=== PATIENT | male | born 1980 | race Caucasian/White ===

== ENCOUNTER 2019-02-19 17:27 | Outpatient (CLI) | payer BC | END 2019-02-19 17:28 | disposition critical access hospital (66) | LOC: EMS 17:27 | PROVIDERS: ATTEND Surgery | DX: R55 Syncope and collapse (principal) | CPT/HCPCS: A0425; A0427 ==

== ENCOUNTER 2019-02-19 17:41 | Observation (INO) | payer BC, MEDICAID ==
--- NOTE | 2019-02-19 17:52 | ED Physician Documentation ---
History of Present Illness - Stated complaint Stated Complaint: GLF/ETOH - Additonal information Additional information: This is a 38-year-old male who presents after an episode of syncope and head trauma. He was drinking with his brother today, he states that After he was helping move a couch, he suddenly passed out. His brother states that he was standing any suddenly appeared to glaze over, and then fell forward after stumbling. He was out for only a second or so, but when he fell he did hit his head on pavement. He has some soreness in the back of his head but denies any neck pain, weakness, numbness, or tingling. He has a history of "irregular heartbeat,", but has never needed treatment and has never passed out before. No chest pain or shortness of breath, he currently is feeling "fine." Review of Systems Constitutional: denies: Fever Eyes: denies: Loss of vision Cardiac: denies: Chest pain / pressure Respiratory: denies: Cough GI: denies: Vomiting Skin: denies: Laceration (s) Musculoskeletal: denies: Neck pain Neurologic: reports: Syncope PD PAST MEDICAL HISTORY - Past Medical History Cardiovascular: Other ("Irregular heartbeat") - Past Surgical History Past Surgical History: No - Present Medications Home Medications: Ambulatory Orders Medication Instructions Recorded Confirmed No Known Home Medications 02/19/19 02/19/19 - Allergies Allergies/Adverse Reactions: Allergies Allergy/AdvReac Type Severity Reaction Status Date / Time No Known Drug Allergies Allergy Verified 02/19/19 17:48 - Living Situation Living Arrangement: reports: At home - Social History Does the pt smoke?: Yes Smoking Status: Current every day smoker Does the pt drink ETOH?: Yes Does the pt have substance abuse?: No - Immunizations Immunizations are current?: Yes PD ED PE NORMAL - Vitals Vital signs reviewed: Yes - General General: Alert and oriented X 3, No acute distress - HEENT HEENT: Other (Mild tenderness at the occiput of the skull, no hematoma or contusion.) - Neck Neck: Supple, no meningeal sign, No bony TTP, Other (C-collar in place) - Cardiac Cardiac: Other (Regular rhythm, tachycardic to 140.) - Respiratory Respiratory: Clear bilaterally - Abdomen Abdomen: Soft, Non tender, Non distended - Derm Derm: Warm and dry - Extremities Extremities: No deformity - Neuro Neuro: Alert and oriented X 3 - Psych Psych: Normal mood, Normal affect Results - Vitals Vitals: Vital Signs - 24 hr 02/19/19 02/19/19 02/19/19 17:49 18:39 18:56 Temperature 36.6 C Heart Rate 141 H 141 H 139 H Respiratory 23 25 H 16 Rate Blood Pressure 121/78 128/95 H 135/91 H O2 Saturation 95 96 96 02/19/19 02/19/19 02/19/19 19:46 19:52 20:46 Temperature Heart Rate 138 H 129 H 142 H Respiratory 16 16 18 Rate Blood Pressure 133/93 H 138/90 H 119/87 H O2 Saturation 97 96 97 02/19/19 02/19/19 02/19/19 21:01 22:27 22:30 Temperature Heart Rate 146 H 145 H 143 H Respiratory 18 21 20 Rate Blood Pressure 131/87 H 108/71 119/78 O2 Saturation 95 97 97 02/19/19 02/19/19 02/19/19 22:35 22:40 22:47 Temperature Heart Rate 132 H 143 H 131 H Respiratory 17 17 19 Rate Blood Pressure 126/76 135/86 H 131/77 H O2 Saturation 94 96 95 02/19/19 02/19/19 02/19/19 22:50 22:55 23:00 Temperature Heart Rate 132 H 139 H 135 H Respiratory 17 23 23 Rate Blood Pressure 127/83 H 131/81 H 135/74 H O2 Saturation 95 97 96 02/19/19 02/19/19 02/19/19 23:05 23:10 23:15 Temperature Heart Rate 137 H 136 H 135 H Respiratory 20 16 16 Rate Blood Pressure 121/81 H 115/81 H 125/84 H O2 Saturation 96 96 95 02/19/19 02/19/19 02/19/19 23:20 23:25 23:30 Temperature Heart Rate 136 H 135 H 135 H Respiratory 23 14 20 Rate Blood Pressure 132/110 H 126/82 H 118/79 O2 Saturation 96 97 98 02/19/19 02/20/19 02/20/19 23:45 00:00 00:15 Temperature Heart Rate 135 H 136 H 139 H Respiratory 18 19 18 Rate Blood Pressure 122/85 H 119/76 98/62 O2 Saturation 97 91 L 92 10/11/0302/20/19 02/20/19 00:35 00:40 00:48 Temperature Heart Rate 156 H 166 H 142 H Respiratory 20 23 Rate Blood Pressure 128/99 H 118/73 O2 Saturation 96 95 94 02/20/19 01:15 Temperature 37.0 C Heart Rate 139 H Respiratory 20 Rate Blood Pressure 124/75 O2 Saturation 96 Oxygen O2 Source Room air - EKG (time done) 18:04 Other comments: Other comments (Rate 138, rhythm likely supraventricular tachycardia, no obvious ST segment elevation or depression, though TP segment is difficult to discern due to tachycardia.) 18:58 Other comments: Other comments (Rhythm strip obtained during adenosine administration, after adenosine there were P waves visible that do not conduct for 2 beats, followed by recurrence of sinus rhythm, however within several seconds the sinus tachycardia returns to the previous narrow complex tachycardia) - Labs Labs: Laboratory Tests 02/19/19 02/19/19 02/19/19 18:30 18:30 18:30 WBC 8.8 RBC 4.77 Hgb 15.7 Hct 44.8 MCV 93.9 MCH 32.9 H MCHC 35.0 RDW 13.2 Plt Count 253 MPV 9.9 Neut # (Auto) 7.6 H Lymph # (Auto) 0.5 L [place] # (Auto) 0.6 Eos # (Auto) 0.1 Baso # (Auto) 0.1 Absolute Nucleated RBC 0.00 Nucleated RBC % 0.0 PT 11.8 INR 1.0 Sodium 143 Potassium 3.9 Chloride 106 Carbon Dioxide 22 Anion Gap 15.0 H BUN 12 Creatinine 1.1 Estimated GFR (MDRD) 74 L Glucose 98 Calcium 8.9 Total Bilirubin 0.4 AST 27 ALT 24 Alkaline Phosphatase 61 Troponin I High Sens Total Protein 7.6 Albumin 4.3 Globulin 3.3 Albumin/Globulin Ratio 1.3 Lipase 36 TSH Urine Opiates Screen Ur Oxycodone Screen Urine Methadone Screen Ur Propoxyphene Screen Ur Barbiturates Screen Ur Tricyclics Screen Ur Phencyclidine Scrn Ur Amphetamine Screen U Methamphetamines Scrn U Benzodiazepines Scrn Urine Cocaine Screen U Cannabinoids Screen Ethyl Alcohol 217.6 02/19/19 02/19/19 02/19/19 18:30 18:30 21:15 WBC RBC Hgb Hct MCV MCH MCHC RDW Plt Count MPV Neut # (Auto) Lymph # (Auto) [place] # (Auto) Eos # (Auto) Baso # (Auto) Absolute Nucleated RBC Nucleated RBC % PT INR Sodium Potassium Chloride Carbon Dioxide Anion Gap BUN Creatinine Estimated GFR (MDRD) Glucose Calcium Total Bilirubin AST ALT Alkaline Phosphatase Troponin I High Sens 12.8 Total Protein Albumin Globulin Albumin/Globulin Ratio Lipase TSH 1.27 Urine Opiates Screen NEGATIVE Ur Oxycodone Screen NEGATIVE Urine Methadone Screen NEGATIVE Ur Propoxyphene Screen NEGATIVE Ur Barbiturates Screen NEGATIVE Ur Tricyclics Screen NEGATIVE Ur Phencyclidine Scrn NEGATIVE Ur Amphetamine Screen NEGATIVE U Methamphetamines Scrn NEGATIVE U Benzodiazepines Scrn NEGATIVE Urine Cocaine Screen NEGATIVE U Cannabinoids Screen NEGATIVE Ethyl Alcohol 02/20/19 00:20 WBC RBC Hgb Hct MCV MCH MCHC RDW Plt Count MPV Neut # (Auto) Lymph # (Auto) [place] # (Auto) Eos # (Auto) Baso # (Auto) Absolute Nucleated RBC Nucleated RBC % PT INR Sodium Potassium Chloride Carbon Dioxide Anion Gap BUN Creatinine Estimated GFR (MDRD) Glucose Calcium Total Bilirubin AST ALT Alkaline Phosphatase Troponin I High Sens 16.5 Total Protein Albumin Globulin Albumin/Globulin Ratio Lipase TSH Urine Opiates Screen Ur Oxycodone Screen Urine Methadone Screen Ur Propoxyphene Screen Ur Barbiturates Screen Ur Tricyclics Screen Ur Phencyclidine Scrn Ur Amphetamine Screen U Methamphetamines Scrn U Benzodiazepines Scrn Urine Cocaine Screen U Cannabinoids Screen Ethyl Alcohol PD MEDICAL DECISION MAKING - ED course Complexity details: considered differential (Dysrhythmia, ACS, SVT, a flutter, alcohol intoxication, intracranial hemorrhage, fracture, contusion, concussion.) ED course: Patient arrives in C-spine precautions, is awake, alert, with a non-focal neurologic exam. He has some mild posterior head tenderness, no other signs of trauma. CT scan of the head and C-spine are negative, c-collar cleared. Labs reveal elevated alcohol level, UDS negative, labs otherwise unremarkable. When he arrived he was tachycardic to 140, with a narrow complex rhythm on the monitor. EKG reveals what appears to be a Supraventricular tachycardia. His blood pressure is normal and he is asymptomatic with no chest pain or shortness of breath. Vagal maneuvers were ineffective at breaking the dysrhythmia. Patient was given 6 mg of adenosine with no change in his rhythm, followed by 12 mg of adenosine rapid IV push which caused him to convert to a sinus tachycardia for 10 beats, then he returned to his supraventricular tachycardia. A second 12 mg dose of adenosine caused him to convert to sinus rhythm but only for around 10 beats. Patient was given diltiazem 10 mg, followed by 15 mg IV push, and Diltiazem infusion up to 12.5 mg/h. This is not effective in controlling the heart rate. Second troponin remains within normal limits. I spoke to [facility] Cardiology, who recommended a beta caitlin and observation. They thought to be appropriate for admission at our hospital or transfer to [facility]. I spoke with our hospitalist Dr. Caceres who evaluated the patient and admitted the patient for further treatment and observation. His blood pressure remains normal and he is asymptomatic at this time. Departure - Departure Disposition: ED Place in Observation Clinical Impression: Tachycardia Syncope Qualifiers: Syncope type: unspecified Qualified Code(s): R55 - Syncope and collapse Condition: Stable Discharge Date/Time: 02/20/19 01:30
[2019-02-19] MEDS ORDERED: SODIUM CHLORIDE 0.9% 1,000 ML IV ONE (18:17)
[2019-02-19 18:38] LABS: BASOPHILS # (AUTO) 0.1 10^3/uL (0.0-0.1); BASOPHILS % (AUTO) 0.7 %; EOSINOPHILS # (AUTO) 0.1 10^3/uL (0.0-0.7); EOSINOPHILS % (AUTO) 0.6 %; HGB - HEMOGLOBIN 15.7 g/dL (14.0-18.0); LYMPHOCYTES # (AUTO) 0.5 10^3/uL (1.5-3.5); LYMPHOCYTES % (AUTO) 5.6 %; MEAN CORPUSCULAR HEMOGLOBIN 32.9 pg (27.0-31.0); MEAN CORPUSCULAR VOLUME 93.9 fL (80.0-94.0); MEAN PLATELET VOLUME 9.9 fL (7.4-11.4); MONOCYTES # (AUTO) 0.6 10^3/uL (0.0-1.0); MONOCYTES % (AUTO) 6.5 %; NEUTROPHILS # (AUTO) 7.6 10^3/uL (1.5-6.6); NEUTROPHILS % (AUTO) 86.1 %; PLT - PLATELET COUNT 253 10^3/uL (130-450); RED BLOOD COUNT 4.77 10^6/uL (4.70-6.10); RED CELL DISTRIBUTION WIDTH 13.2 % (12.0-15.0); WHITE BLOOD COUNT 8.8 x10^3/uL (4.8-10.8)
[2019-02-19] MEDS ORDERED: ADENOSINE 6 MG/2 ML VIAL IVP STA ×3 (18:38→23:20)
[2019-02-19 18:49] LABS: ALBUMIN 4.3 g/dL (3.2-5.5); ALBUMIN/GLOBULIN RATIO 1.3 (1.0-2.2); BILIRUBIN,TOTAL 0.4 mg/dL (0.2-1.0); CALCIUM 8.9 mg/dL (8.5-10.3); CREATININE 1.1 mg/dL (0.6-1.2); TOTAL PROTEIN 7.6 g/dL (6.7-8.2)
[2019-02-19 18:51] LABS: PT - PROTHROMBIN TIME 11.8 secs (9.9-12.6)
[2019-02-19] MEDS ORDERED: ADENOSINE 6 MG/2 ML VIAL IVP ONE (19:04)
[2019-02-19] MEDS ORDERED: diltiaZEM INJ 5 MG/ML VIAL IVP STA ×2 (19:32→22:11)
--- NOTE | 2019-02-19 20:03 | CT Report ---
Reason: Syncope and impact to head Procedure Date: 02/19/2019 Accession Number: [id number] / [id number] Procedure: CT - HEAD WO CPT Code: FULL RESULT: EXAM: CT HEAD EXAM DATE: 02/19/2019 07:37 PM. CLINICAL HISTORY: Syncope and impact to head. COMPARISON: None. TECHNIQUE: Multiaxial CT images were obtained from the foramen magnum to the vertex. Reformats: Sagittal and coronal. IV contrast: None. In accordance with CT protocol optimization, one or more of the following dose reduction techniques were utilized for this exam: automated exposure control, adjustment of mA and/or KV based on patient size, or use of iterative reconstructive technique. FINDINGS: Parenchyma: No intraparenchymal hemorrhage. No evidence of mass, midline shift, or CT findings of infarction. Lemon-white differentiation is distinct. Extraaxial Spaces: Normal for age. No subdural or epidural collections identified. Ventricles: Normal in size and position. Sinuses and Orbits: Imaged paranasal sinuses, orbits, and mastoids show no significant abnormality. Bones: No evidence of fracture or calvarial defect. Other: None. IMPRESSION: No acute intracranial CT abnormality. RADIA
--- NOTE | 2019-02-19 20:08 | CT Report ---
Reason: Syncope and impact to head Procedure Date: 02/19/2019 Accession Number: [id number] / [id number] Procedure: CT - CERVICAL SPINE WO CPT Code: FULL RESULT: EXAM: CT CERVICAL SPINE WITHOUT CONTRAST DATE: 02/19/2019 07:36 PM. HISTORY: Syncope and impact to head. COMPARISONS: None. TECHNIQUE: Thin-section axial images were acquired of the cervical spine without contrast. Post-processing: Coronal and sagittal reformats. Other: None. In accordance with CT protocol optimization, one or more of the following dose reduction techniques were utilized for this exam: automated exposure control, adjustment of mA and/or KV based on patient size, or use of iterative reconstructive technique. FINDINGS: Alignment: No scoliosis or spondylolisthesis. Bones: No acute fracture. Interspace Levels/Facets: Mild disk degeneration at C5-C6. Moderate right foraminal stenosis at this level. Other: The paravertebral and prevertebral soft tissues are unremarkable. The lung apices are clear. IMPRESSION: No acute fracture. RADIA
[2019-02-19 21:24] LABS: MUDS CUTOFF CONCENTRATIONS CUTOFF CONC BELOW:
[2019-02-19 21:36] LABS: AMPHETAMINE SCREEN,URINE NEGATIVE (NEGATIVE); BENZODIAZEPINES SCREEN, URINE NEGATIVE (NEGATIVE); COCAINE SCREEN URINE NEGATIVE (NEGATIVE); METHADONE SCREEN, URINE NEGATIVE (NEGATIVE); METHAMPHETAMINES SCREEN, URINE NEGATIVE (NEGATIVE); OPIATE SCREEN, URINE NEGATIVE (NEGATIVE); OXYCODONE SCREEN, URINE NEGATIVE (NEGATIVE); PROPOXYPHENE SCREEN, URINE NEGATIVE (NEGATIVE); TRICYCLIC ANTIDEPRESSANT,URINE NEGATIVE (NEGATIVE)
[2019-02-19] MEDS ORDERED: diltiaZEM INJ 125 MG in DEXTROSE 5% 100 ML IV STA (22:09)
[2019-02-19] MEDS ORDERED: diltiaZEM INJ 5 MG/ML VIAL ONE (22:29)
[2019-02-19] MEDS ORDERED: LORazepam 2 MG/ML VIAL IVP STA (23:24)
[2019-02-20] MEDS ORDERED: ONDANSETRON 4 MG/2 ML VIAL IVP PRN (01:17)
[2019-02-20] MEDS ORDERED: SODIUM CHLORIDE FLUSH 0.9% 10 ML SYRINGE IVP PRN (01:17)
[2019-02-20] MEDS ORDERED: METOPROLOL 5 MG/5 ML VIAL IVP STA ×2 (01:18→06:43)
--- NOTE | 2019-02-20 01:31 | HISTORY & PHYSICAL EXAMINATION ---
Chief Complaint - Chief Complaint Chief Complaint: Syncope History of Present Illness - Admitted From Admitted From:: Home - History Obtained From Records Reviewed: Yes History obtained from: Patient, ER Physician, EMR - History of Present Illness HPI Comment/Other: This is a 38 year old male with a past medical history significant for an irregular heart beat and alcohol abuse who presents to the ER after having a syncopal episode. He reports that he helped his brother move today after he drank some alcohol in the morning. He normally drinks 50oz of malt liquor and 50oz of beer daily but that he drink a little more today. While at his brother's apartment he passed out and his brother saw him on the ground. He went to wake him up and the patient woke up after a few seconds. He did not feel confused after the episode. He denies having chest pain, palpitations, dizziness or lightheadedness prior the episode. He did hit his head on the ground but denies weakness, numbness, headache. After they loaded the vehicle with furniture, his brother heard another "thump" and found the patient sitting in the car passed out again. Once again he woke up after a few seconds and was not confused. He reports being told he had an irregular heart beat in his early 20's but was never received treatment. He currently does not take medications and has not seen a doctor in a few years. He continues to deny chest pain, dyspnea, palpitations. He does report some dizziness when standing up quickly. In the ER, he was found to be in SVT with heart rate in the 140's. The patient was asymptomatic. He received 6mg of Adenosine without a change in his rhythm. He then received 12mg which broke the rhythm for about 10 seconds which revealed a sinus tachycardia but he went back into SVT shortly after. He received a second dose of 12mg with similar results. He was then given Diltiazem 10mg IV followed by 15mg IV with no change in his rate. The ER Physician contacted Cardiology at [facility] who recommended initiating a beta caitlin and observation. Labs were unremarkable except for an alcohol level >200. TSH was normal. Imaging of his head and c-spine were also unremarkable. History - Past Medical History Cardiovascular: reports: None, Other ("Irregular heartbeat") Respiratory: reports: None Endocrine/Autoimmune: reports: None GI: reports: None - Family & Social History Family History Comment/Other: His father had hypertension. His grandfather has heart disease. He denies a history of arrythmias in the family. 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. He smokes a pack of cigarettes a day for the past 20 years. He drinks 50oz of malt liquor and 50oz of beer daily for the last few years. Denies going through withdrawal in the past. Denies current illicit drug use. He did try ecstacy back in 1999. - Substance History Use: Uses substance without health or social issues: Tobacco Abuse: Recurrent use of substance despite neg consequences: Alcohol Abuse Issues: Intoxication Tobacco Details: Cigarettes, E-Cigarettes - POLST Patient has POLST: No Meds/Allgy - Home Medications Home Medications: Ambulatory Orders Medication Instructions Recorded Confirmed No Known Home Medications 02/19/19 02/19/19 - Allergies Allergies/Adverse Reactions: Allergies Allergy/AdvReac Type Severity Reaction Status Date / Time No Known Drug Allergies Allergy Verified 02/19/19 17:48 Review of Systems - Constitutional Constitutional: denies: Fatigue, Fever, Chills, Weakness - Cardiovascular Cariovascular: reports: Syncope. denies: Irregular heart rate, Palpitations, Chest pain, Edema, Lightheadedness, Exertional dyspnea, Decr. exercise tolerance - Respiratory Respiratory: denies: Cough, SOB at rest, SOB with exertion - Gastrointestinal Gastrointestinal: denies: Abdominal pain, Nausea, Vomiting - Musculoskeletal Musculoskeletal: denies: Muscle weakness - Integumentary Integumentary: denies: Rash - Neurological Neurological: reports: Dizziness. denies: General weakness, Focal weakness, Headache, Numbness, Memory problems - All Other Systems All Other Systems: reports: Reviewed and negative Prior Level of Functionality: Independent with ADL's. Exam - Vital Signs Reviewed Vital Signs: Yes Vital Signs: Vital Signs x48h Temp Pulse Resp BP Pulse Ox 02/20/19 01:15 37.0 C 139 H 20 124/75 96 02/20/19 00:48 142 H 23 118/73 94 02/20/19 00:40 166 H 95 02/20/19 00:35 156 H 20 128/99 H 96 02/20/19 00:15 139 H 18 98/62 92 02/20/19 00:00 136 H 19 119/76 91 L 02/19/19 23:45 135 H 18 122/85 H 97 02/19/19 23:30 135 H 20 118/79 98 02/19/19 23:25 135 H 14 126/82 H 97 02/19/19 23:20 136 H 23 132/110 H 96 02/19/19 23:15 135 H 16 125/84 H 95 02/19/19 23:10 136 H 16 115/81 H 96 02/19/19 23:05 137 H 20 121/81 H 96 02/19/19 23:00 135 H 23 135/74 H 96 02/19/19 22:55 139 H 23 131/81 H 97 02/19/19 22:50 132 H 17 127/83 H 95 02/19/19 22:47 131 H 19 131/77 H 95 02/19/19 22:40 143 H 17 135/86 H 96 02/19/19 22:35 132 H 17 126/76 94 02/19/19 22:30 143 H 20 119/78 97 02/19/19 22:27 145 H 21 108/71 97 02/19/19 21:01 146 H 18 131/87 H 95 02/19/19 20:46 142 H 18 119/87 H 97 02/19/19 19:52 129 H 16 138/90 H 96 02/19/19 19:46 138 H 16 133/93 H 97 02/19/19 18:56 139 H 16 135/91 H 96 02/19/19 18:39 141 H 25 H 128/95 H 96 02/19/19 17:49 36.6 C 141 H 23 121/78 95 - Physical Exam General Appearance: positive: No acute distress, Alert Eyes Bilateral: positive: Normal inspection, Other (Conjuctivae slightly injected) ENT: positive: ENT inspection nml Neck: positive: Nml inspection Respiratory: positive: No respiratory distress. negative: Wheezes, Rales, Rhonchi Cardiovascular: positive: Tachycardia, Other (Regular rhythm). negative: Irregularly irregular, Bradycardia, Systolic murmur, Diastolic murmur Abdomen: positive: Non-tender, No distention. negative: Tenderness, Guarding, Rebound Skin: positive: Color nml, No rash, Warm, Dry Extremities: positive: Non-tender, Full ROM, Nml appearance, No pedal edema Neurologic/Psychiatric: positive: Oriented x3, Motor nml, Sensation nml. negative: Disoriented to person, Disoriented to place, Disoriented to time, Weakness Conclusion/Plan - Problem List (1) Syncope Conclusion/Plan: This may be secondary to his arrhythmia or his alcohol intoxication. Orthostasis will need to be ruled out as he may be dehydrated from his significant alcohol use and the physical exertion of movement. EKG consistent with SVT. No ischemic signs. Troponin negative. Imaging of head and c-spine is unremarkable. - Will check orthostatics - IV hydration - Obtain Echo once rate controlled - Trend troponin - Monitor on telemetry Qualifiers: Syncope type: unspecified Qualified Code(s): R55 - Syncope and collapse (2) SVT (supraventricular tachycardia) Conclusion/Plan: He is asymptomatic at this time but his history of syncope is concerning. Unable to break with Adenosine x3 and Diltiazem. Rates persistently around 140. Suspect this may be underlying atrial flutter. TSH is normal. - Lopressor 5mg IV now - Start Metoprolol 50mg BID PO - Obtain Echo - Monitor on telemetry (3) Alcohol intoxication Conclusion/Plan: Presented with alcohol level >200. Drinks 100oz of alcohol daily between malt liquor and beer. Denies history of withdrawal in the past. - Thiamine and Folic acid PO - [facility] protocol - Monitor for withdrawal - Lab Results Lab results reviewed: Yes Fish Bones: 02/19/19 18:30 02/19/19 18:30 - Diagnostic Imaging Results Diagnostic Imaging Results: positive: Final report reviewed - EKG Results EKG Interpreted Independently: Yes EKG Findings: SVT without ischemic changes. Rate in the high 130's. QTc prolonged at 479. Core Measures - Anticipated LOS I expect patient to be DC'd or transferred within 96 hours.: Yes - Issues Hospital Issues and Management Plan: Syncope and SVT requiring further rate control and workup. - DVT/VTE - Prophylaxis VTE/DVT Device ordered at admit?: Yes VTE/DVT Prophylaxis med ordered at admit?: Yes
[2019-02-20] MEDS ORDERED: METOPROLOL 5 MG/5 ML VIAL IVP ONE (02:03)
[2019-02-20] MEDS ORDERED: LACTATED RINGERS 1,000 ML IV SCH (05:00)
[2019-02-20 05:20] LABS: CALCIUM 8.8 mg/dL (8.5-10.3); MAGNESIUM 2.2 mg/dL (1.7-2.8)
[2019-02-20] MEDS: METOPROLOL TARTRATE 50 MG TABLET PO SCH ×2 (10:10→20:01)
[2019-02-20] MEDS: THIAMINE 100 MG TABLET PO SCH (10:10)
[2019-02-20] MEDS: ENOXAPARIN 40 MG/0.4 ML SYRINGE SUBQ SCH (10:10)
[2019-02-20] MEDS: SODIUM CHLORIDE FLUSH 0.9% 10 ML SYRINGE IVP SCH ×2 (10:11→17:01)
[2019-02-20] MEDS: FOLIC ACID 1 MG TABLET PO SCH (10:11)
--- NOTE | 2019-02-20 11:45 | PROVIDER PROGRESS NOTE ---
Subjective - Prog Note Date Prog Note Date: 02/20/19 Prog Note Time: 11:37 - Subjective Pt reports feeling: Improved Subjective: Mr. Penny is resting in bed this morning. He feel is feeling a bit groggy. He has gotten up a couple of times to use the restroom and has not felt lightheaded, dizzy or any palpitations. The soreness that he had to his back and the back of his head is now gone. He is hoping to return to work tomorrow. 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 No h/a, hallucinations, anxiety, nausea, vomiting, dizziness or chest pain. Current Medications - Current Medications Current Medications: Active Medications Enoxaparin Sodium (Lovenox) 40 mg SUBQ DAILY [facility] Last Admin: 02/20/19 10:10 Dose: 40 mg Folic Acid () 1 mg PO DAILY [facility] Last Admin: 02/20/19 10:11 Dose: 1 mg Metoprolol Tartrate (Lopressor) 50 mg PO BID [facility] Last Admin: 02/20/19 10:10 Dose: 50 mg Ondansetron HCl (Zofran Inj) 4 mg IVP Q6HR PRN PRN Reason: Nausea / Vomiting Multivit/Folic Acid/Iron (Trinatal Rx 1) 1 tab PO DAILYWM [facility] Sodium Chloride (Normal Saline Flush 0.9%) 10 ml IVP PRN PRN PRN Reason: NEEDED PER PROVIDER ORDERS Sodium Chloride (Normal Saline Flush 0.9%) 10 ml IVP 0100,0900,1700 [facility] Last Admin: 02/20/19 10:11 Dose: 10 ml Thiamine HCl (Vitamin B-1) 100 mg PO DAILY [facility] Last Admin: 02/20/19 10:10 Dose: 100 mg No Known Home Medications 02/19/19 Objective - Vital Signs/Intake & Output Vital Signs: Vital Signs x48h Pulse Pulse Pulse Pulse BP BP BP 02/20/19 09:10 132 H 139 H 128 H 147/107 H 02/20/19 07:15 127 H 137/96 H 02/20/19 07:10 128 H 132/94 H 02/20/19 07:09 123/87 H 02/20/19 06:04 139 H 151 H 132 H 137/102 H BP BP 02/20/19 09:10 129/90 H 141/91 H 02/20/19 07:15 02/20/19 07:10 02/20/19 07:09 02/20/19 06:04 140/91 H 141/93 H Intake & Output: Intake & Output 02/17/19 02/18/19 02/19/19 02/20/19 23:59 23:59 23:59 23:59 Intake Total 8994.515 9209 Output Total 400 525 Balance 607.250 682 - Objective General Appearance: positive: No acute distress. negative: Anxious, Lethargic, Other (No diaphoresis) Eyes Bilateral: positive: Normal inspection, PERRL, Conjunctivae nml, No scleral icterus ENT: positive: ENT inspection nml, No signs of dehydration Neck: positive: Nml inspection. negative: Swelling/bruising Respiratory: positive: No respiratory distress, Breath sounds nml Cardiovascular: positive: Tachycardia. negative: No murmur, No gallop, Decreased pulse(s) Peripheral Pulses: 2+ Radial (R), 2+ Radial (L), 2+ Dorsalis pedis (R), 2+ Dorsalis pedis (L) Abdomen: positive: Non-tender, Nml bowel sounds Back: positive: Nml inspection Skin: positive: Color nml, Warm, Dry, Other (Scratches to RUE post fall). negative: Diaphoresis Extremities: positive: Non-tender, Full ROM. negative: Other (No tremors) Neurologic/Psychiatric: positive: Oriented x3, Motor nml, Sensation nml, Mood/affect nml. negative: Depressed mood/affect - Lab Results Fish Bones: 02/19/19 18:30 02/20/19 04:55 Other Labs: Lab Results x24hrs 02/20/19 02/20/19 02/20/19 Range/Units 04:55 04:55 00:20 WBC (4.8-10.8) x10^3/uL RBC (4.70-6.10) 10^6/uL Hgb (14.0-18.0) g/dL Hct (42.0-52.0) % MCV (80.0-94.0) fL MCH (27.0-31.0) pg MCHC (32.0-36.0) g/dL RDW (12.0-15.0) % Plt Count (130-450) 10^3/uL MPV (7.4-11.4) fL Neut # (Auto) (1.5-6.6) 10^3/uL Lymph # (Auto) (1.5-3.5) 10^3/uL Edgar # (Auto) (0.0-1.0) 10^3/uL Eos # (Auto) (0.0-0.7) 10^3/uL Baso # (Auto) (0.0-0.1) 10^3/uL Absolute Nucleated RBC x10^3/uL Nucleated RBC % /100WBC PT (9.9-12.6) secs INR (0.8-1.2) Sodium 141 (135-145) mmol/L Potassium 3.6 (3.5-5.0) mmol/L Chloride 106 (101-111) mmol/L Carbon Dioxide 27 (21-32) mmol/L Anion Gap 8.0 (6-13) BUN 12 (6-20) mg/dL Creatinine 1.0 (0.6-1.2) mg/dL Estimated GFR (MDRD) 83 L (>89) Glucose 108 H (70-100) mg/dL Calcium 8.8 (8.5-10.3) mg/dL Magnesium 2.2 (1.7-2.8) mg/dL Total Bilirubin (0.2-1.0) mg/dL AST (10-42) IU/L ALT (10-60) IU/L Alkaline Phosphatase (42-121) IU/L Troponin I High Sens 9.4 16.5 (2.3-19.7) pg/mL Total Protein (6.7-8.2) g/dL Albumin (3.2-5.5) g/dL Globulin (2.1-4.2) g/dL Albumin/Globulin Ratio (1.0-2.2) Lipase (22-51) U/L TSH (0.34-5.60) uIU/mL Urine Opiates Screen (NEGATIVE) Ur Oxycodone Screen (NEGATIVE) Urine Methadone Screen (NEGATIVE) Ur Propoxyphene Screen (NEGATIVE) Ur Barbiturates Screen (NEGATIVE) Ur Tricyclics Screen (NEGATIVE) Ur Phencyclidine Scrn (NEGATIVE) Ur Amphetamine Screen (NEGATIVE) U Methamphetamines Scrn (NEGATIVE) U Benzodiazepines Scrn (NEGATIVE) Urine Cocaine Screen (NEGATIVE) U Cannabinoids Screen (NEGATIVE) Ethyl Alcohol mg/dL 02/19/19 02/19/19 02/19/19 Range/Units 21:15 18:30 18:30 WBC (4.8-10.8) x10^3/uL RBC (4.70-6.10) 10^6/uL Hgb (14.0-18.0) g/dL Hct (42.0-52.0) % MCV (80.0-94.0) fL MCH (27.0-31.0) pg MCHC (32.0-36.0) g/dL RDW (12.0-15.0) % Plt Count (130-450) 10^3/uL MPV (7.4-11.4) fL Neut # (Auto) (1.5-6.6) 10^3/uL Lymph # (Auto) (1.5-3.5) 10^3/uL Edgar # (Auto) (0.0-1.0) 10^3/uL Eos # (Auto) (0.0-0.7) 10^3/uL Baso # (Auto) (0.0-0.1) 10^3/uL Absolute Nucleated RBC x10^3/uL Nucleated RBC % /100WBC PT (9.9-12.6) secs INR (0.8-1.2) Sodium (135-145) mmol/L Potassium (3.5-5.0) mmol/L Chloride (101-111) mmol/L Carbon Dioxide (21-32) mmol/L Anion Gap (6-13) BUN (6-20) mg/dL Creatinine (0.6-1.2) mg/dL Estimated GFR (MDRD) (>89) Glucose (70-100) mg/dL Calcium (8.5-10.3) mg/dL Magnesium (1.7-2.8) mg/dL Total Bilirubin (0.2-1.0) mg/dL AST (10-42) IU/L ALT (10-60) IU/L Alkaline Phosphatase (42-121) IU/L Troponin I High Sens 12.8 (2.3-19.7) pg/mL Total Protein (6.7-8.2) g/dL Albumin (3.2-5.5) g/dL Globulin (2.1-4.2) g/dL Albumin/Globulin Ratio (1.0-2.2) Lipase (22-51) U/L TSH 1.27 (0.34-5.60) uIU/mL Urine Opiates Screen NEGATIVE (NEGATIVE) Ur Oxycodone Screen NEGATIVE (NEGATIVE) Urine Methadone Screen NEGATIVE (NEGATIVE) Ur Propoxyphene Screen NEGATIVE (NEGATIVE) Ur Barbiturates Screen NEGATIVE (NEGATIVE) Ur Tricyclics Screen NEGATIVE (NEGATIVE) Ur Phencyclidine Scrn NEGATIVE (NEGATIVE) Ur Amphetamine Screen NEGATIVE (NEGATIVE) U Methamphetamines Scrn NEGATIVE (NEGATIVE) U Benzodiazepines Scrn NEGATIVE (NEGATIVE) Urine Cocaine Screen NEGATIVE (NEGATIVE) U Cannabinoids Screen NEGATIVE (NEGATIVE) Ethyl Alcohol mg/dL 02/19/19 02/19/19 02/19/19 Range/Units 18:30 18:30 18:30 WBC 8.8 (4.8-10.8) x10^3/uL RBC 4.77 (4.70-6.10) 10^6/uL Hgb 15.7 (14.0-18.0) g/dL Hct 44.8 (42.0-52.0) % MCV 93.9 (80.0-94.0) fL MCH 32.9 H (27.0-31.0) pg MCHC 35.0 (32.0-36.0) g/dL RDW 13.2 (12.0-15.0) % Plt Count 253 (130-450) 10^3/uL MPV 9.9 (7.4-11.4) fL Neut # (Auto) 7.6 H (1.5-6.6) 10^3/uL Lymph # (Auto) 0.5 L (1.5-3.5) 10^3/uL Edgar # (Auto) 0.6 (0.0-1.0) 10^3/uL Eos # (Auto) 0.1 (0.0-0.7) 10^3/uL Baso # (Auto) 0.1 (0.0-0.1) 10^3/uL Absolute Nucleated RBC 0.00 x10^3/uL Nucleated RBC % 0.0 /100WBC PT 11.8 (9.9-12.6) secs INR 1.0 (0.8-1.2) Sodium 143 (135-145) mmol/L Potassium 3.9 (3.5-5.0) mmol/L Chloride 106 (101-111) mmol/L Carbon Dioxide 22 (21-32) mmol/L Anion Gap 15.0 H (6-13) BUN 12 (6-20) mg/dL Creatinine 1.1 (0.6-1.2) mg/dL Estimated GFR (MDRD) 74 L (>89) Glucose 98 (70-100) mg/dL Calcium 8.9 (8.5-10.3) mg/dL Magnesium (1.7-2.8) mg/dL Total Bilirubin 0.4 (0.2-1.0) mg/dL AST 27 (10-42) IU/L ALT 24 (10-60) IU/L Alkaline Phosphatase 61 (42-121) IU/L Troponin I High Sens (2.3-19.7) pg/mL Total Protein 7.6 (6.7-8.2) g/dL Albumin 4.3 (3.2-5.5) g/dL Globulin 3.3 (2.1-4.2) g/dL Albumin/Globulin Ratio 1.3 (1.0-2.2) Lipase 36 (22-51) U/L TSH (0.34-5.60) uIU/mL Urine Opiates Screen (NEGATIVE) Ur Oxycodone Screen (NEGATIVE) Urine Methadone Screen (NEGATIVE) Ur Propoxyphene Screen (NEGATIVE) Ur Barbiturates Screen (NEGATIVE) Ur Tricyclics Screen (NEGATIVE) Ur Phencyclidine Scrn (NEGATIVE) Ur Amphetamine Screen (NEGATIVE) U Methamphetamines Scrn (NEGATIVE) U Benzodiazepines Scrn (NEGATIVE) Urine Cocaine Screen (NEGATIVE) U Cannabinoids Screen (NEGATIVE) Ethyl Alcohol 217.6 mg/dL - Diagnostic Imaging Diagnostic Imaging Results: positive: Final report reviewed ABX Reporting Has patient been on IV antibiotics over the past 48 hours?: No Assessment/Plan - Problem List (1) Syncope Impression: Had 2 episodes of syncope yesterday prior to visiting ED, the second one resulting in hitting his head on the pavement. Upon arrival, he was found to be having SVTs (140s - 150s), requiring Adenosine and Diltiazem. These SVTs could be attributed to chronic drinking but he needs an ECHO to determine the cause. CT of spine and head were negative and there are no subjective/objective signs of trauma. His kidney function was normal and he was given 1L fluid bolus in ED. He is normotensive but his HR continues to be in 120s. He does not see a PCP. -Stop IVF -Continue Metoprolol 50mg BID and monitor on this -Hopefully ECHO in the am but will need to have as output if not able -Follow up w/ cardiology outpatient -Would like to have patient ambulated around unit w/o syncopal episode prior to discharge -Request PCP list from social work. Pt is interested. Qualifiers: Syncope type: unspecified Qualified Code(s): R55 - Syncope and collapse (2) Tobacco dependence Impression: He has been smoking since the age of 12. He smokes 28 cigarettes per day (> 1 pack). He is not interested in quitting at this time. He was offered Nicotine replacement therapy while in house but he declines at this time. He was encouraged to let us know if he changes his mind. (3) Alcohol dependence Impression: Has been drinking for many years and he drinks around 8 beers per day. He has never gone through withdrawals that he is aware of but has noticed agitation and tremors before when he has gone a few days without drinking. His last drink was yesterday around 1500. He would like to quit drinking but is not interested in any resources that we may have to offer. He wants to try to quit cold turkey. Last CIWA was noted to be at 0300 today and was 2. -Folic acid, B-1 and vitamin -Continue CIWA -Bladder scan for s/s urinary retention Qualifiers: Substance use status: with intoxication
[2019-02-20] MEDS ORDERED: MULTIVITAMIN 10 ML, THIAMINE INJ 100 MG, FOLIC ACID INJ 1 MG in SODIUM CHLORIDE 0.9% 1,... IV SCH (12:00)
[2019-02-20] MEDS: PRENATAL VITAMIN TABLET PO SCH (12:43)
[2019-02-20] MEDS ORDERED: diltiaZEM INJ 5 MG/ML VIAL IVP ONE (17:01)
[2019-02-21] MEDS: SODIUM CHLORIDE FLUSH 0.9% 10 ML SYRINGE IVP SCH ×2 (00:06→08:46)
[2019-02-21 07:53] VITALS: BP 131/94
[2019-02-21] MEDS: ENOXAPARIN 40 MG/0.4 ML SYRINGE SUBQ SCH (08:45)
[2019-02-21] MEDS: FOLIC ACID 1 MG TABLET PO SCH (08:45)
[2019-02-21] MEDS: PRENATAL VITAMIN TABLET PO SCH (08:45)
[2019-02-21] MEDS: METOPROLOL TARTRATE 50 MG TABLET PO SCH (08:45)
[2019-02-21] MEDS: THIAMINE 100 MG TABLET PO SCH (08:46)
[2019-02-21] MEDS ORDERED: diltiaZEM CD 120 MG CAPSULE PO SCH (09:00)
--- NOTE | 2019-02-21 09:14 | Discharge Plan ---
Discharge Plan Problem Reviewed?: Yes Disposition: Home, Self Care Condition: Stable Prescriptions: diltiaZEM CD [Cardizem Cd] 120 mg PO DAILY #30 capsule Metoprolol Tartrate [Lopressor] 50 mg PO BID #30 tablet Pnv95/Ferrous Fumarate/FA [ Formula] 1 each PO DAILY #30 tablet Thiamine HCl [Vitamin B-1] 50 mg PO DAILY #30 tablet Diet: Regular Activity Restrictions: Activity as Tolerated Shower Restrictions: No Driving Restrictions: No Instruction Topics: Metoprolol tablets, Diltiazem tablets Health Concerns: You presented to our emergency room with 2 episodes of passing out. In context, you also smoke and drink. We found you to have a very fast heart rate, Most likely secondary to prolonged alcohol use. There is still other causes of a very fast heart rate. Right now we temporized with starting you on medicines that slow down your heart rate. Plan of Treatment: 1. Please establish yourself with a primary care provider. I have referred you to the [facility] as well. The decator operator come to the hospital 2 times a week. I have sent a referral along hoping to help you see them sooner. [place]. So you have an appointment on 02/25/19 at 11:35 am in the [facility] on [address] in [place]. Please make sure you keep this appointment or cancel by 02/23 because you will be charge $250 if you do not show up. 2. Of drinking and smoking, stopping drinking is the most important. It is the one thing that affects your heart rate. So you will stop drinking completely. 3. Smoking will continue. We are still asking you to stop smoking. However you would like to slowly cut back since you are giving up drinking. But please make no mistake about it, we are asking you to stop smoking and drinking completely. Nicotine gum is [id number]. 4. He will be started on 2 pills to control your heart rate. 1 pill is twice a day and the other pill is once a day. 5. After speaking to you, you have symptoms of an anxiety disorder. Possibly even a small amount of agoraphobia. When you when you establish yourself with a primary care provider, they may be able to start you on medications that will help that. 6. Please follow thru with getting an appointment for an Echocardiogram. That is an ultrasound of your heart. This will help us identify or eliminate causes of your fast heart rate. Care Goals: To control your heart rate to the point that it becomes a normal rate. To stop drinking and smoking. Assessment: Patient understands goals. Acknowledges that it will be very hard for him to stop both of his coping mechanisms. But will try to comply and follow through. No Smoking: If you smoke, Please STOP! Call for help.
--- NOTE | 2019-02-21 13:22 | DISCHARGE SUMMARY ---
Discharge Summary Admit Date: 02/20/19 Discharge Date: 02/21/19 Discharging Provider: Suri Gipson MD Primary Care Provider: No PCP Code Status: Attempt Resuscitation Condition at Discharge: Good Discharge Disposition: 01 Home, Self Care - DIAGNOSES Discharge Diagnoses with Status of Each Condition: 1). SVT 2). Alcohol dependence 3). Tobacco dependence 4). Generalized anxiety disorder - HPI History of Present Illness: (Obtained from Dr. Lucien Caceres's H&P from 02/20/19) This is a 38 year old male with a past medical history significant for an irregular heart beat and alcohol abuse who presents to the ER after having a syncopal episode. He reports that he helped his brother move today after he drank some alcohol in the morning. He normally drinks 50oz of malt liquor and 50oz of beer daily but that he drink a little more today. While at his brother's apartment he passed out and his brother saw him on the ground. He went to wake him up and the patient woke up after a few seconds. He did not feel confused after the episode. He denies having chest pain, palpitations, dizziness or lightheadedness prior the episode. He did hit his head on the ground but denies weakness, numbness, headache. After they loaded the vehicle with furniture, his brother heard another "thump" and found the patient sitting in the car passed out again. Once again he woke up after a few seconds and was not confused. He reports being told he had an irregular heart beat in his early 20's but was neve r received treatment. He currently does not take medications and has not seen a doctor in a few years. He continues to deny chest pain, dyspnea, palpitations. He does report some dizziness when standing up quickly. In the ER, he was found to be in SVT with heart rate in the 140's. The patient was asymptomatic. He received 6mg of Adenosine without a change in his rhythm. He then received 12mg which broke the rhythm for about 10 seconds which revealed a sinus tachycardia but he went back into SVT shortly after. He received a second dose of 12mg with similar results. He was then given Diltiazem 10mg IV followed by 15mg IV with no change in his rate. The ER Physician contacted Cardiology at [facility] who recommended initiating a beta caitlin and observation. Labs were unremarkable except for an alcohol level >200. TSH was normal. Imaging of his head and c-spine were also unremarkable. - CONSULTS | PROCEDURES Procedures: 1). Head CT- WNL 2). Cervical spine CT- WNL 3). EKG-10/6- Narrow complex tachycardia w/ rate 140-150s 4). EKG-10/7- Narrow complex tachycardia unchanged from prior EKG w/ slower rate 120s-130s - HOSPITAL COURSE Hospital Course: Mr. Penny presented to ED after having 2 syncopal episodes, the second one resulting in him hitting his head on the concrete. Upon arrival, he was found to be having SVTs (140-150s), requiring IV Diltiazem and Adenosine. He was started on Metoprolol 50mg PO BID. That evening, he was still tachycardic so a RP EKG was ordered showing narrow complex tachycardia unchanged from prior EKG w/ a rate 120-130s. Telephone consult to cardiology recommended to add Diltiazem to his regimen and to get an ECHO. The following morning, this patient's HR was in 70s while resting. He was unable to obtain an ECHO in house so he will need to have one outpatient. I have spoken to Dr. Carlito Smith, web content & social media manager for [facility], and he recommended adding the calcium channel caitlin to the beta caitlin. I have obtained an appointment for the patient with a cardiology appointment scheduled on 02/25/19 @ 1940, at the [facility] in the [facility]. Mr Penny's urine tox was + for alcohol upon arrival. He is a heavy drinker and tobacco smoker. Although he has never gone into withdrawal (per his report), he was started on CIWAs and they were low </=2. He was spoken to regarding the importance of cessation of nicotine and alcohol and well as finding a PCP. Of note, he drinks approximately 8 cans of beer per day and smokes approximately 28 cigarettes per day. He was provided w/ a list of local PCPs. After conversing w/ this patient, it was discovered that he has symptoms of an anxiety disorder and possibly even agoraphobia and uses cigarettes and beer as a coping mechanism. It was also recommended that once he establishes a PCP, he address these issues as well. He is hoping to get his followup cardiology visits here on the [place] once he sees Dr. Holloway in [place]. - ALLERGIES Allergies/Adverse Reactions: Allergies Allergy/AdvReac Type Severity Reaction Status Date / Time No Known Drug Allergies Allergy Verified 02/19/19 17:48 - MEDICATIONS Home Medications: Ambulatory Orders Medication Instructions Recorded Confirmed Metoprolol Tartrate [Lopressor] 50 mg PO BID #30 tablet 02/21/19 Pnv95/Ferrous Fumarate/FA 1 each PO DAILY #30 tablet 02/21/19 [ Formula] Thiamine HCl [Vitamin B-1] 50 mg PO DAILY #30 tablet 02/21/19 diltiaZEM CD [Cardizem Cd] 120 mg PO DAILY #30 capsule 02/21/19 Home Medications Other | Comments: None - PHYSICAL EXAM AT DISCHARGE General Appearance: positive: No acute distress, Alert Eyes Bilateral: positive: Normal inspection. negative: No lid inflammation, No scleral icterus ENT: positive: ENT inspection nml. negative: No signs of dehydration, Oral lesions Neck: positive: Nml inspection, Thyroid nml. negative: No JVD, Trachea midline, Carotid bruit Respiratory: positive: Chest non-tender, Breath sounds nml. negative: No respiratory distress Cardiovascular: positive: Tachycardia. negative: No murmur, No gallop, JVD present, Systolic murmur, Diastolic murmur, Gallop/S3, Gallop/S4, Friction rub, Decreased pulse(s) Peripheral Pulses: positive: 2+ Abdomen: positive: Non-tender, No organomegaly, Nml bowel sounds, No distention Back: positive: Nml inspection Skin: positive: Color nml, No rash, Warm, Dry. negative: Diaphoresis, Pallor, Skin rash Extremities: positive: Non-tender, Other (No tremors) Neurologic/Psychiatric: positive: Oriented x3, Motor nml, Other (No agitation ) - LABS Result Diagrams: 02/19/19 18:30 02/20/19 04:55 - DIAGNOSTIC IMAGING Diagnostic Imaging Results: Read independently - FOLLOW UP Follow Up: 1). Kimber Holloway MD, [facility] on 02/25/19 @ 1135 in the [facility] 2). PCP to be established
== END 2019-02-21 13:00 | disposition home or self-care (01) ==
LOC: EDUNIT# → ED 17:41 → MS2 02-20 01:17
PROVIDERS: ADMIT Internal Medicine; ATTEND Specialist
DX: I47.1 Supraventricular tachycardia (principal); R55 Syncope and collapse; R51 Headache; W01.198A Fall on same level from slipping, tripping and stumbling with subsequent striking against other object, initial encounter; Y93.E6 Activity, residential relocation; Y92.480 Sidewalk as the place of occurrence of the external cause; F10.229 Alcohol dependence with intoxication, unspecified; Y90.7 Blood alcohol level of 200-239 mg/100 ml; F41.1 Generalized anxiety disorder; Z82.49 Family history of ischemic heart disease and other diseases of the circulatory system; F17.210 Nicotine dependence, cigarettes, uncomplicated; F17.290 Nicotine dependence, other tobacco product, uncomplicated
CPT/HCPCS: 36415; 70450; 72125; 80048; 80320; 83690; 83735; 84484; 85610; 93005; 96361; 96365; 96372; 96375; 96376; 99284; 99285; 99406; A9270; G0378; J0153; J1650; J2060; J7120; 80053; 80306; 84443; 85025

== ENCOUNTER 2023-05-07 11:00 | Outpatient (CLI) | payer BC, OTHER | END 2023-05-07 11:15 | disposition home or self-care (01) | LOC: LAB.N 11:00 | PROVIDERS: ATTEND Nurse Practitioner | DX: R31.9 Hematuria, unspecified (principal) | CPT/HCPCS: 87086 ==

== ENCOUNTER 2023-05-08 17:00 | Outpatient (CLI) | payer OTHER ==
[2023-05-08 21:12] LABS: BASOPHILS # (AUTO) 0.1 10^3/uL (0.0-0.1); BASOPHILS % (AUTO) 1.1 %; EOSINOPHILS # (AUTO) 0.1 10^3/uL (0.0-0.7); EOSINOPHILS % (AUTO) 2.1 %; HGB - HEMOGLOBIN 16.1 g/dL (14.0-18.0); LYMPHOCYTES # (AUTO) 0.7 10^3/uL (1.5-3.5); LYMPHOCYTES % (AUTO) 11.9 %; MEAN CORPUSCULAR HEMOGLOBIN 30.6 pg (27.0-31.0); MEAN CORPUSCULAR HGB CONC 33.5 g/dL (32.0-36.0); MEAN CORPUSCULAR VOLUME 91.1 fL (80.0-94.0); MEAN PLATELET VOLUME 10.5 fL (7.4-11.4); MONOCYTES # (AUTO) 0.5 10^3/uL (0.0-1.0); MONOCYTES % (AUTO) 7.6 %; NEUTROPHILS # (AUTO) 4.8 10^3/uL (1.5-6.6); NEUTROPHILS % (AUTO) 77.1 %; PLT - PLATELET COUNT 214 10^3/uL (130-450); RED BLOOD COUNT 5.27 10^6/uL (4.70-6.10); RED CELL DISTRIBUTION WIDTH 13.4 % (12.0-15.0); WHITE BLOOD COUNT 6.2 x10^3/uL (4.8-10.8)
[2023-05-08 21:19] LABS: GLUCOSE, URINE (UA) NEGATIVE (NEGATIVE); KETONES,URINE (UA) TRACE mg/dL (NEGATIVE); LEUKOCYTE ESTERASE, URINE TRACE (NEGATIVE); NITRITE,URINE POSITIVE (NEGATIVE); OCCULT BLOOD,URINE LARGE (NEGATIVE); PH,URINE 6.5 PH (5.0-7.5); PROTEIN,URINE >=300 mg/dL (NEGATIVE); UROBILINOGEN,URINE 1 (NORMAL) E.U./dL (NORMAL)
[2023-05-08 21:24] LABS: BILIRUBIN,URINE NEGATIVE (NEGATIVE); CLARITY,URINE CLOUDY (CLEAR); ICTOTEST,URINE NEGATIVE
[2023-05-08 21:31] LABS: ALBUMIN 4.6 g/dL (3.2-5.5); ALBUMIN/GLOBULIN RATIO 1.8 (1.0-2.2); BILIRUBIN,TOTAL 0.4 mg/dL (0.2-1.0); CALCIUM 9.5 mg/dL (8.5-10.3); CREATININE 1.2 mg/dL (0.6-1.3); POTASSIUM 3.8 mmol/L (3.5-4.5); TOTAL PROTEIN 7.2 g/dL (6.4-8.9)
[2023-05-08 21:31] LABS: WBC,URINE 0-3 /HPF (0-3)
[2023-05-08 21:32] LABS: BACTERIA,URINE None Seen /HPF (None Seen); RBC,URINE TNTC /HPF (0-5); SQUAMOUS EPITHELIAL CELL,UR NONE SEEN (<= Few)
== END 2023-05-08 17:15 | disposition home or self-care (01) ==
LOC: LAB.N 17:00
PROVIDERS: ATTEND Family Medicine
DX: R31.9 Hematuria, unspecified (principal)
CPT/HCPCS: 36415; 80053; 81001; 85025

== ENCOUNTER 2023-05-14 13:44 | Outpatient (CLI) | payer OTHER ==
[2023-05-14] MEDS ORDERED: iohexoL-300 100 ML VIAL IVP ONE (14:15)
--- NOTE | 2023-05-14 19:35 | CT Report ---
PROCEDURE: IVP INDICATIONS: HEMATURIA CONTRAST: 140ml omni 300 TECHNIQUE: A [address] of the abdomen and pelvis was performed. Non-contrast and contrast images were recorded and evaluated at appropriate window settings. Images were recorded and evaluated at appropriate windo w settings. Reformats: coronal and sagittal. For radiation dose reduction, the following was used: au tomated exposure control, adjustment of convex left scoliosis. 3 interval casting with improved align ment at the tibia and fibula fractures. MA and/or kV according to patient size. COMPARISON: None. FINDINGS: Image quality: Diagnostic. Urinary system: Both kidneys are normal in size. No hydronephrosis or nephrolithiasis on pre-contras t images. No solid masses or complex cysts which require follow up. The opacified renal calyces and ureters appear normal, without filling defect. Bladder wall thickness is normal, accounting for unde rdistention. No calcified bladder stones. No filling defect within the opacified bladder. Small inco mpletely characterized bilateral renal hypodensities likely representing cysts. OTHER Lung bases and heart: Bibasilar atelectasis. Heart size is normal. Liver: No solid mass. Gallbladder and biliary tree: No radiopaque stones or wall thickening. No biliary dilation. Spleen: No splenomegaly. Pancreas: No pancreatic ductal dilation. Adrenals: No adrenal nodule. Bowel and peritoneum: No bowel distension. No pathologic free fluid. Normal appendix Abdominal Lymph nodes: No central or retroperitoneal adenopathy. Vessels: Unremarkable. Reproductive organs: Unremarkable. Pelvic Lymph nodes: Unremarkable. Bones: No aggressive osseous abnormality. No acute compression fractures. Other: Small bilateral fat-containing inguinal hernias without acute inflammation.. IMPRESSION: CT IVP without acute abnormalities identified in the abdomen or pelvis. No findings identified to exp ting patient's history of hematuria. Specifically, no evidence for urolithiasis or obstructive uropat hy. No abnormal findings to suggest suspicious urothelial abnormalities. Reviewed by: Oliver Nicholas MD on 05/14/2023 7:34 PM PST Approved by: Oliver Nicholas MD on 05/14/2023 7:34 PM PST Station ID: [id number]
== END 2023-05-14 13:45 | disposition home or self-care (01) ==
LOC: DI 13:44
PROVIDERS: ATTEND Student in an Organized Health Care Education/Training Program
DX: R31.9 Hematuria, unspecified (principal)
CPT/HCPCS: 74178; Q9967